=== PATIENT | male | born 1970 | race Caucasian/White ===

== ENCOUNTER 2018-06-15 17:31 | Emergency (ER) | payer MEDICARE ==
[2018-06-15] MEDS ORDERED: DIPH,PERTUS(ACELL)TETVAC-LF 0.5 ML VIAL IM ONE (17:37)
[2018-06-15 17:44] VITALS: RESP 18; TEMP 98.2
--- NOTE | 2018-06-15 18:03 | ED ---
Wound/Laceration HPI - General Chief Complaint: Wound/Laceration Stated Complaint: rt knee pain, left reza lac from fall Time Seen by Provider: 06/15/18 17:37 Source: patient, EMS, RN notes reviewed Mode of arrival: EMS Limitations: no limitations - History of Present Illness Initial Comments: This is a 47-year-old male who presents to the emergency department via EMS with chief complaint of fall injury. Patient reports prior to arrival he was out fishing. He states that he heard a fish on one of his lines and as he was walking he tripped over a concrete block. He states that he skinned his left reza on the block, fell forward and landed on his right knee and right hand. Patient reports a laceration to the left reza and right knee pain. Denies any other injuries or trauma. Denies head, neck or back pain. Denies loss of consciousness, nausea or vomiting. Denies dizziness or headache. - Related Data Previous Rx's Medication Instructions Recorded Cephalexin [Keflex] 500 mg PO Q12HR #10 cap 06/15/18 Allergies Allergy/AdvReac Type Severity Reaction Status Date / Time No Known Allergies Allergy Verified 06/15/18 17:44 Review of Systems ROS Statement: Those systems with pertinent positive or pertinent negative responses have been documented in the HPI. ROS Other: All systems not noted in ROS Statement are negative. Past Medical History Past Medical History: CVA/TIA, Diabetes Mellitus, Hypertension Additional Past Medical History / Comment(s): Kidney failure, Liver failure History of Any Multi-Drug Resistant Organisms: None Reported Past Surgical History: Orthopedic Surgery, Tonsillectomy Past Psychological History: Anxiety, Depression Smoking Status: Never smoker Past Alcohol Use History: Occasional Past Drug Use History: None Reported General Exam - General Exam Comments Initial Comments: General: Awake and alert, well-developed; in no apparent distress. HEENT: Head atraumatic, normocephalic. Pupils are equal, round and reactive to light. Extraocular movements intact. Oropharynx moist without erythema or exudate. Neck: Supple. Normal ROM. Cardiovascular: Regular rate and rhythm. No murmurs, rubs or gallops. Chest symmetrical. Pedal pulses are 2+ equal and palpable bilaterally. Respiratory: Lungs clear to auscultation bilaterally. No wheezes, rales or rhonchi. Normal respiratory effort with no use of accessory muscles. Musculoskeletal: Normal ROM bilateral upper and lower extremities. No tenderness on palpation of the right knee. There is a small, superficial abrasion inferolateral to the right patella. Skin: Chronic hyperpigmentation bilateral lower extremities. Approximately 11 cm V-shaped flap-like skin tear left mid reza with diffuse surrounding ecchymosis and soft tissue swelling. No active bleeding. Neurological: Alert and oriented x3. CN II-XII grossly intact. Speech is fluent and answers are appropriate. No focal neuro deficits. Psychiatric: Normal mood and affect. No overt signs of depression or anxiety noted. Limitations: no limitations Course Vital Signs 06/15/18 06/15/18 17:42 19:30 Temperature 98.2 F Pulse Rate 77 68 Respiratory 18 18 Rate Blood Pressure 132/69 136/74 O2 Sat by Pulse 97 97 Oximetry Procedures - Laceration Laceration #1 Consent Obtained: verbal consent Indication: laceration Site: lower extremity (mid left reza) Size (cm): 11 Description: flap (v-shaped skin tear) Depth: simple, single layer Anesthetic Used: lidocaine 1% Anesthesia Technique: local infiltration Amount (mls): 12 Pre-repair: wound explored, irrigated extensively, deep structures intact Type of Sutures: nylon Size of Sutures: 4-0, 5-0 Number of Sutures: 14 Technique: simple, interrupted Patient Tolerated Procedure: well, no complications Medical Decision Making - Medical Decision Making This is a 47-year-old male who presents to the emergency department with chief complaint of fall injury. Patient reports falling after tripping over a concrete block earlier today. He sustained an approximately 11 cm V-shaped laceration to the mid left reza. 14 sutures and Steri-Strips were placed. Patient tolerated well without complication. Bacitracin and dressing is applied. Recommended removal of sutures in 2 weeks. Patient will be started on Keflex for infection prevention as patient does have multiple comorbidities including diabetes and chronic venous insufficiency. Patient also complained of right knee pain as when he fell he landed on the right knee. After suturing the left reza, patient stated that he was no longer having right knee pain. An x-ray of the right knee was obtained which revealed no acute abnormalities. Patient's vital signs have been stable and he is in no acute distress. He will be discharged home at this time. He is in agreement with plan and voices understanding. All questions were answered. - Radiology Data Radiology results: report reviewed, image reviewed X-ray left tibia and fibula findings: I see no fracture nor dislocation. Tibia and fibula appear intact. There is soft tissue swelling around the lower leg. There is laceration deformity of the soft tissues over the anterior mid tibia. There is no sign of a foreign body. Impression: No fracture. Laceration deformity. X-ray right knee impression: Mild osteoarthritis and chondrocalcinosis. Atherosclerotic vascular disease. No fracture seen. Disposition Clinical Impression: Laceration of left leg Disposition: HOME SELF-CARE Condition: Good Instructions: Care For Your Stitches (ED), Laceration (ED) Additional Instructions: As discussed, please have sutures removed in 2 weeks. Please monitor for any signs of infection. Please apply ice and take Tylenol or ibuprofen as needed. Please take medications as prescribed. Please allow Steri-Strips to fall off on their own. Please follow up with primary care provider within 1-2 days. Return to emergency department if symptoms should worsen or any concerns arise. Prescriptions: Cephalexin [Keflex] 500 mg PO Q12HR #10 cap Is patient prescribed a controlled substance at d/c from ED?: No Referrals: Nonstaff,Physician [Primary Care Provider] - 1-2 days Time of Disposition: 19:14
--- NOTE | 2018-06-15 18:31 | XR ---
EXAMINATION TYPE: XR tibia fibula LT DATE OF EXAM: 06/15/2018 COMPARISON: NONE HISTORY: Leg pain TECHNIQUE: 4 views FINDINGS: I see no fracture nor dislocation. Tibia and fibula appear intact. There is soft tissue swe lling around the lower leg. There is laceration deformity of the soft tissues over the anterior mid t ibia. There is no sign of a foreign body. IMPRESSION: No fracture. Laceration deformity.
--- NOTE | 2018-06-15 18:37 | XR ---
EXAMINATION TYPE: XR knee complete RT DATE OF EXAM: 06/15/2018 COMPARISON: NONE HISTORY: Knee pain TECHNIQUE: 3 views FINDINGS: I see no fracture nor dislocation. There is some spurring of the femoral and tibial condyle s. There is minimal calcification of the lateral meniscus. There is no definite joint effusion. There is vascular calcification. IMPRESSION: Mild osteoarthritis and chondrocalcinosis. Atherosclerotic vascular disease. No fracture seen.
[2018-06-15] MEDS ORDERED: CEPHALEXIN 500 MG CAP PO STA (19:09)
[2018-06-15 19:38] VITALS: BP 136/74; PULSE 68
== END 2018-06-15 19:30 | disposition home or self-care (01) ==
LOC: EC 17:31
DX: S81.812A Laceration without foreign body, left lower leg, initial encounter (principal); Z23 Encounter for immunization; Z86.73 Personal history of transient ischemic attack (TIA), and cerebral infarction without residual deficits; Z98.890 Other specified postprocedural states; W01.0XXA Fall on same level from slipping, tripping and stumbling without subsequent striking against object, initial encounter; W26.8XXA Contact with other sharp object(s), not elsewhere classified, initial encounter; Y93.89 Activity, other specified
CPT/HCPCS: 12004; 90471; 90715; 99284